=== PATIENT | male | born 1930 | race Caucasian/White ===

== ENCOUNTER → 2020-09-27 | Day surgery (SDC) | payer MEDICARE, OTHER ==
[~2020-09-27] MED LIST: ANORO ELLIPTA1 EACH INH; ASPIRIN EC81 MG PO; COZAAR50 MG PO; HCTZ12.5 MG PO; HYTRIN1 MG PO; LOPRESSOR25 MG PO; NEURONTIN300 MG PO; PRILOSEC20 MG PO; SPIRONOLACTONE25 M1 PO; VITAMIN D31250 MCG PO
[2020-09-27 08:56] LABS: HCT 44.9 % (42.0-52.0); HGB 14.5 g/dl (13.2-18.0); MCH 28.5 pg (25.0-31.0); MCHC 32.3 g/dL (32.0-36.0); MCV 88.2 fL (78.0-100.0); MPV 11.3 fL (6.0-9.5); RBC 5.09 M/uL (4.70-6.00); RDW 13.6 % (11.5-14.0); WBC 6.3 K/uL (4.0-10.5)
[2020-09-27 09:20] LABS: ALBUMIN 3.9 g/dL (3.4-5.0); BILIRUBIN - TOTAL 1.1 mg/dL (0.2-1.0); BUN/CREAT RATIO (CALC) 16.7 RATIO; CREATININE 1.02 mg/dL (0.67-1.17); GLOBULIN (CALCULATION) 3.3 g/dL; TOTAL PROTEIN 7.2 g/dL (6.4-8.2)
== END | disposition home or self-care (01) ==
LOC: FAS 07:49
PROVIDERS: Surgery
DX: Z12.11 Encounter for screening for malignant neoplasm of colon (principal); K21.00 Gastro-esophageal reflux disease with esophagitis, without bleeding; K31.9 Disease of stomach and duodenum, unspecified; J44.9 Chronic obstructive pulmonary disease, unspecified; I10 Essential (primary) hypertension; G47.30 Sleep apnea, unspecified; M19.90 Unspecified osteoarthritis, unspecified site; Z87.891 Personal history of nicotine dependence; Z86.010 Personal history of colon polyps; Z99.89 Dependence on other enabling machines and devices; Z79.82 Long term (current) use of aspirin; Z79.899 Other long term (current) drug therapy
CPT/HCPCS: 43239; G0105; 36415; 80053; 88305; J2704; J7120

== ENCOUNTER 2021-03-11 09:37 | Inpatient (IN) | payer MEDICARE ==
[~2021-03-11] VITALS: Ht 167.6 cm; Wt 93.6 kg
[2021-03-11 10:09] LABS: EOSINOPHIL 2.3 % (0-7); HCT 48.1 % (42.0-52.0); HGB 14.9 g/dl (13.2-18.0); LYMPHOCYTE 30.1 % (15-48); MCH 28.4 pg (25.0-31.0); MCV 91.8 fL (78.0-100.0); MONOCYTE 6.3 % (0-12); MPV 11.3 fL (6.0-9.5); NRBC 0; PLT 155 K/uL (150-400); RBC 5.24 M/uL (4.70-6.00); RDW 14.4 % (11.5-14.0); WBC 9.2 K/uL (4.0-10.5)
[2021-03-11 10:14] LABS: INR 1.02 (0.9-1.2); PROTHROMBIN TIME 12.8 SECONDS (11.8-13.4)
[2021-03-11 10:19] LABS: ALBUMIN 3.8 g/dL (3.4-5.0); BILIRUBIN - TOTAL 0.5 mg/dL (0.2-1.0); BUN/CREAT RATIO (CALC) 20.4 RATIO; C-REACTIVE PROTEIN 0.2 mg/dL (<=0.90); CREATININE 1.13 mg/dL (0.67-1.17); GLOBULIN (CALCULATION) 3.4 g/dL; MAGNESIUM 1.8 mg/dL (1.8-2.4); POTASSIUM 4.2 mmol/L (3.5-5.1); TOTAL PROTEIN 7.2 g/dL (6.4-8.2)
[2021-03-11 10:31] LABS: PRO-BNP 212 pg/mL (<450)
[2021-03-12 07:21] LABS: BASOPHIL 0.3 % (0-2); EOSINOPHIL 0.7 % (0-7); HCT 41.6 % (42.0-52.0); HGB 12.8 g/dl (13.2-18.0); LYMPHOCYTE 8.3 % (15-48); MCHC 30.8 g/dL (32.0-36.0); MCV 94.1 fL (78.0-100.0); MONOCYTE 7.5 % (0-12); MPV 11.9 fL (6.0-9.5); NEUTROPHIL 82.9 % (41-80); NRBC 0; PLT 100 K/uL (150-400); RBC 4.42 M/uL (4.70-6.00); RDW 14.6 % (11.5-14.0); WBC 8.7 K/uL (4.0-10.5)
[2021-03-12 07:41] LABS: ALBUMIN 3.3 g/dL (3.4-5.0); BILIRUBIN - TOTAL 0.7 mg/dL (0.2-1.0); BUN/CREAT RATIO (CALC) 22.1 RATIO; CREATININE 1.13 mg/dL (0.67-1.17); GLOBULIN (CALCULATION) 2.9 g/dL; POTASSIUM 4.6 mmol/L (3.5-5.1); TOTAL PROTEIN 6.2 g/dL (6.4-8.2)
[2021-03-13 06:11] LABS: BASOPHIL 0.5 % (0-2); EOSINOPHIL 1.9 % (0-7); HCT 41.5 % (42.0-52.0); HGB 12.8 g/dl (13.2-18.0); LYMPHOCYTE 14.2 % (15-48); MCH 28.8 pg (25.0-31.0); MCHC 30.8 g/dL (32.0-36.0); MCV 93.5 fL (78.0-100.0); MONOCYTE 7.5 % (0-12); MPV 11.7 fL (6.0-9.5); NEUTROPHIL 75.6 % (41-80); NRBC 0; RBC 4.44 M/uL (4.70-6.00); RDW 14.5 % (11.5-14.0); WBC 7.3 K/uL (4.0-10.5)
[2021-03-13 06:12] LABS: PLT 89 K/uL (150-400)
--- NOTE | 2021-03-13 15:03 | NUR ---
1117 CHEST TUBE WAS REMOVED PER DR. HICKS, DRY DRESSING WAS PLACED OVER THE SITE AND INSTRUCTED NO TO REMOVED DRESSING UNTIL FRIDAY. ALSO INSTRUCTED TO REPORT ANY CHEST PAINS, INCREASED SHORTNESS OF AIR.
--- NOTE | 2021-03-14 14:36 | NUR ---
03/14/21 Mr. Baxter lives at home with his spouse. He has a quad cane. - An appointment was scheduled at [facility] for 03/15/21 at 1:00 with Kortney Ramon. Report given to MS MICHAEL Garay.
== END 2021-03-14 17:05 | disposition home or self-care (01) | DRG 199 ==
LOC: FER 09:37 → FMS 12:31
PROVIDERS: Emergency Medicine; ADMIT Family Medicine
PROC: 0W9930Z Drainage of Right Pleural Cavity with Drainage Device, Percutaneous Approach (ICD-10-PCS; principal; 2021-03-11)
DX: S27.0XXA Traumatic pneumothorax, initial encounter (principal); J96.01 Acute respiratory failure with hypoxia; Z20.822 Contact with and (suspected) exposure to COVID-19; N40.1 Benign prostatic hyperplasia with lower urinary tract symptoms; R33.8 Other retention of urine; J44.9 Chronic obstructive pulmonary disease, unspecified; I10 Essential (primary) hypertension; E78.5 Hyperlipidemia, unspecified; I25.10 Atherosclerotic heart disease of native coronary artery without angina pectoris; G47.33 Obstructive sleep apnea (adult) (pediatric); R73.03 Prediabetes; K21.9 Gastro-esophageal reflux disease without esophagitis; M19.90 Unspecified osteoarthritis, unspecified site; Z95.2 Presence of prosthetic heart valve; Z99.81 Dependence on supplemental oxygen; W18.30XA Fall on same level, unspecified, initial encounter; Y92.009 Unspecified place in unspecified non-institutional (private) residence as the place of occurrence of the external cause; Z79.82 Long term (current) use of aspirin; Z79.899 Other long term (current) drug therapy; Z90.89 Acquired absence of other organs
CPT/HCPCS: 36415; 36600; 70450; 71045; 71250; 80053; 82803; 82962; 83036; 83735; 83880; 84145; 84484; 85025; 85610; 85730; 86140; 93005; 96374; 96375; 97110; 97162; 97166; 97530-GP; 97535; C1729; J1170; J2405; J7030; U0002